=== PATIENT | female | born 1985 | race Two or more races ===

== ENCOUNTER 2016-06-18 14:15 | Emergency (ER) | payer MEDICAID, OTHER ==
[~2016-06-18] VITALS: Ht 160 cm; Wt 93.9 kg
[~2016-06-18 14:15] MED LIST: CIPRO500 MG PO; DIFLUCAN200 MG PO; IBUPROFEN600 MG ORAL; METFORMIN HCL1000 M1 ORAL; ZOFRAN ODT4 MG ORAL
[2016-06-18 14:49] VITALS: BP 95/67
[2016-06-18 14:59] LABS: APPEARANCE,URINE CLEAR; KETONES,URINE 1+ (NEGATIVE); LEUKOCYTE ESTERASE ,URINE NEGATIVE (NEGATIVE); NITRITE,URINE POSITIVE (NEGATIVE); PH,URINE 6 (4.5-8.0); PROTEIN,URINE 1+ (NEGATIVE); UROBILINOGEN,URINE NORMAL MG/DL (0.0-1.0)
[2016-06-18 15:06] LABS: RBC,URINE 0-2 /HPF (0 - 2); WBC,URINE 0-2 /HPF (0 - 2)
--- NOTE | 2016-06-18 15:06 | Emergency Room Report ---
History of Present Illness General Chief Complaint: Abdominal Pain Source: Patient Present Illness HPI 30-year-old male presents emergency department complaining of frequency, now odor and dark colored urine in addition to fevers lower abdominal discomfort and low back pain. Patient reports intermittent uterine cramping states she is on Depo-Provera and her last menstrual period was in March 2016. Patient reports her unprotected intercourse, however states she has had negative at- home test.. patient reports nausea denies vomiting denies constipation or diarrhea. Patient denies myalgias, fatigue or muscle cramps. Denies CP, Palpitations, LOC, AMS, dizziness, Changes in Vision, Sensation, paresthesias, or a sudden severe headache. 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 Allergies: Coded Allergies: No Known Allergies (Unverified , 02/18/12) Patient History Past Medical History: see triage record Past Surgical History: none Pertinent Family History: none Last Menstrual Period: mar 17 depo shot Now: No Immunizations: UTD Reviewed Nursing Documentation: PMH: Agreed, PSxH: Agreed Nursing Documentation-PMH Past Medical History: No History, Except For Hx Diabetes: Yes Review of Systems All Other Systems: negative except mentioned in HPI Physical Exam Vital Signs Date Time Temp Pulse Resp B/P Pulse Ox O2 Delivery O2 Flow Rate FiO2 06/18/16 14:21 98.8 115 20 95/67 98 Room Air Sp02 EP Interpretation: reviewed, abnormal - pt is tachycardic at 115 General Appearance: no apparent distress, alert, GCS 15, non-toxic Head: normocephalic, atraumatic Eyes: bilateral eye PERRL, bilateral eye normal inspection ENT: hearing grossly normal, normal pharynx, no angioedema, normal voice Neck: full range of motion, supple/symm/no masses Respiratory: chest non-tender, lungs clear, normal breath sounds, speaking full sentences Cardiovascular #1: regular rate, rhythm, no edema Gastrointestinal: normal bowel sounds, non tender, soft, no guarding, no rebound Rectal: deferred Genitourinary: normal inspection, no CVA tenderness Musculoskeletal: back normal, gait/station normal, normal range of motion, non- tender, no calf tenderness Neurologic: alert, oriented x3, responsive, motor strength/tone normal, sensory intact, speech normal Psychiatric: judgement/insight normal, memory normal, mood/affect normal, no suicidal/homicidal ideation Skin: normal color, no rash, warm/dry, well hydrated Lymphatic: no adenopathy Medical Decision Making PA Attestation Dr. Alaniz is my supervising Physician whom patient management has been discussed with. Diagnostic Impression: Primary Impression: Urinary tract infection Qualified Codes: N30.01 - Acute cystitis with hematuria Additional Impression: Positive test ER Course Pt. presents to the ED c/o urine malodor, frequency, intermittent uterine cramping and lmp was in march 2016. on Depo. pt states urine is dark in color with strong malodor Ddx considered but are not limited to UTi , Pyelo, STI, Stone, Cystitis, rhabdo , , Vital signs:Pt tachycardic at 115 , pt. is afebrile H&PE are most consistent with UTI ORDERS: - UA labs are attached -Urine Hcg:Positive - Pelvic US: IUP at approximately 13 weeks gestation with hear rate noted. please see Radiology report for full details. ED INTERVENTIONS: None required at this time. DISCHARGE: At this time pt. is stable for d/c to home. Will provide printed patient care instructions, and any necessary prescriptions. Care plan and follow up instructions have been discussed with the patient prior to discharge. Labs Test 06/18/16 14:13 06/18/16 14:30 Urine Color Pale yellow Urine Appearance Clear Urine pH 6 (4.5-8.0) Urine Specific [place] 1.010 (1.005-1.035) Urine Protein 1+ (NEGATIVE) Urine Glucose (UA) 4+ (NEGATIVE) Urine Ketones 1+ (NEGATIVE) Urine Occult Blood Negative (NEGATIVE) Urine Nitrite Positive (NEGATIVE) Urine Bilirubin Negative (NEGATIVE) Urine Urobilinogen Normal MG/DL (0.0-1.0) Urine Leukocyte Esterase Negative (NEGATIVE) Urine RBC 0-2 /HPF (0 - 2) Urine WBC 0-2 /HPF (0 - 2) Urine Squamous Epithelial Cells Few /LPF (NONE/OCC) Urine Bacteria Few /HPF (NONE) Urine HCG, Qualitative Positive Last Vital Signs Date Time Temp Pulse Resp B/P Pulse Ox O2 Delivery O2 Flow Rate FiO2 06/18/16 14:49 98.8 80 20 95/67 98 Room Air Disposition: HOME, SELF-CARE Condition: Stable Scripts Vit #91/Fe Fum/Fa/Dha ( + DHA COMBO PACK) 1 Each Combo..pkg 1 EACH PO DAILY, #1 PACK Prov: Monica Swann 06/18/16 Nitrofurantoin Monohyd/M-Cryst* (MACROBID 100 MG*) 100 Mg Capsule 100 MG ORAL EVERY 12 HOURS for 7 Days, #14 CAP Prov: Monica Swann 06/18/16 Patient Instructions: Urinary Tract Infection Additional Instructions: Take medications as directed. Follow up with PCP in 3-5 days Return sooner to ED if new symptoms occur, or current symptoms become worse. Monica Swann Jun 18, 2016 15:06
[2016-06-18 15:07] LABS: BACTERIA,URINE FEW /HPF; SQUAMOUS EPITHELIAL CELL,UR FEW /LPF (NONE/OCC)
[2016-06-18] MEDS ORDERED: NITROFURANTOIN100 M2 ORAL (15:14)
[2016-06-18] MEDS ORDERED: PRENATAL + DHA1 EAC1 PO (17:43)
[2016-06-18 18:00] VITALS: BP 95/67
--- NOTE | 2016-06-19 10:08 | Diagnostic Imaging Report ---
Indication:Pelvic pain. She was Technique: Grayscale and duplex Doppler imaging of the pelvis performed utilizing a transabdominal scan and endovaginal scan. Comparison: None Findings: Limited OB sonogram was performed demonstrating a single living intrauterine , gestational age estimated at 13 weeks 3 days. heart rate 150 beats per minute. anatomy not assessed on this study. Amniotic fluid appears appropriate for gestational age. The placenta is posterior location and low lying either partially covering the internal cervical loss or very close to the internal cervical os opening. Findings consistent with marginal placenta previa, which could resolve later in . Followup examination is therefore needed closer to term. presentation is variable. Endovaginal scan performed shows closed cervix with measurement of about 4.8 cm in length. measurements are as follows: Biparietal diameter 22.5 mm, 13 weeks 5 days Head circumference 83.2 mm, 13 weeks 4 days Abdominal scar but 68.1 mm, 13 weeks 3 days Femur length 10.5 mm, 13 weeks one day Sikes-rump length 72.6 mm, 13 weeks 3 days. Head circumference abdominal circumference ratio is 1.22. Impression: Single living intrauterine 13 weeks 3 days. anatomy not assessed at this time. Amniotic fluid is within normal limits. Low lying placenta. Recommend repeat ultrasound closer to term. Note: A negative ultrasound evaluation does not insure well-being or positive outcome for the . monitoring including a nonstress test may be needed and clinical evaluation by [employer] is highly recommended.
== END 2016-06-18 18:00 | disposition home or self-care (01) ==
LOC: EMR 16:50
DX: Z33.1 Pregnant state, incidental (principal); O23.11 Infections of bladder in pregnancy, first trimester; N30.01 Acute cystitis with hematuria; E11.9 Type 2 diabetes mellitus without complications
CPT/HCPCS: 76815; 81003; 81025; 99283

== ENCOUNTER 2017-05-03 11:42 | Emergency (ER) | payer OTHER ==
[~2017-05-03] VITALS: Ht 160 cm; Wt 88.5 kg
[~2017-05-03 11:42] MED LIST changes: +NITROFURANTOIN100 M2 ORAL; +PRENATAL + DHA1 EAC1 PO
[2017-05-03] MEDS ORDERED: NKM (11:55)
[2017-05-03 12:26] LABS: APPEARANCE,URINE CLEAR; KETONES,URINE 1+ (NEGATIVE); LEUKOCYTE ESTERASE ,URINE NEGATIVE (NEGATIVE); NITRITE,URINE NEGATIVE (NEGATIVE); PH,URINE 5 (4.5-8.0); PROTEIN,URINE 3+ (NEGATIVE); UROBILINOGEN,URINE NORMAL MG/DL (0.0-1.0)
[2017-05-03 12:35] LABS: BACTERIA,URINE FEW /HPF; RBC,URINE 0-2 /HPF (0 - 2); SQUAMOUS EPITHELIAL CELL,UR FEW /LPF (NONE/OCC); WBC,URINE 0-2 /HPF (0 - 2)
[2017-05-03 12:40] LABS: BASOPHILS % (AUTO) 0.3 % (0.0-2.0); EOSINOPHILS % (AUTO) 0.8 % (0.0-3.0); LYMPHOCYTES % (AUTO) 13.8 % (20.0-45.0); MEAN CORPUSCULAR HEMOGLOBIN 24.4 PG (27.0-31.0); MEAN CORPUSCULAR VOLUME 79 FL (80-99); MEAN PLATELET VOLUME 8.7 FL (6.5-10.1); MONOCYTES % (AUTO) 3.5 % (1.0-10.0); NEUTROPHILS % (AUTO) 81.6 % (45.0-75.0); PLATELET COUNT 272 K/UL (150-450); RED BLOOD COUNT 5.93 M/UL (4.20-5.40); RED CELL DISTRIBUTION WIDTH 12.1 % (11.6-14.8); WHITE BLOOD COUNT 8.8 K/UL (4.8-10.8)
[2017-05-03 12:47] LABS: INR 0.9 (0.9-1.1); PROTHROMBIN TIME 9.6 SEC (9.30-11.50)
[2017-05-03 12:48] LABS: ANION GAP 10 mmol/L (5-15); CALCIUM 8.9 MG/DL (8.5-10.1); CARBON DIOXIDE 27 MMOL/L (21-32); CHLORIDE 100 MMOL/L (98-107); CREATININE 0.7 MG/DL (0.55-1.30); GLOMERULAR FILTRATION RATE > 60 mL/min (>60); SODIUM 137 MMOL/L (136-145)
[2017-05-03 12:53] LABS: ALANINE AMINOTRANSFERASE 20 U/L (12-78); ALBUMIN/GLOBULIN RATIO 0.7 (1.0-2.7); ASPARTATE AMINO TRANSFERASE 12 U/L (15-37); LIPASE 101 U/L (73-393)
[2017-05-03] MEDS ORDERED: ZOFRAN4 M3 ORAL (13:15)
[2017-05-03] MEDS ORDERED: METFORMIN HCL500 M1 ORAL (13:15)
[2017-05-03 13:49] VITALS: BP 114/72
--- NOTE | 2017-05-03 15:14 | Emergency Room Report ---
History of Present Illness General Chief Complaint: Abdominal Pain Source: Patient Present Illness HPI The patient is a 31-year-old female presenting for abdominal pain, nausea, vomiting, and diarrhea since yesterday. She states that the vomiting and diarrhea began before the pain. Pain is a 10 out of 10 dull ache to the mid upper abdomen and does not radiate. Worse with vomiting. She denies any known sick contacts but does admit to recent travel to [place]. She denies other symptoms including fever, chills, shortness of breath, back pain, dysuria, vaginal discharge, rash Allergies: Coded Allergies: No Known Allergies (Unverified , 02/18/12) Patient History Past Medical History: see triage record Pertinent Family History: none Last Menstrual Period: 03/2017 Reviewed Nursing Documentation: PMH: Agreed, PSxH: Agreed Nursing Documentation-PMH Past Medical History: No History, Except For Hx Diabetes: Yes Review of Systems All Other Systems: negative except mentioned in HPI Physical Exam Vital Signs Date Time Temp Pulse Resp B/P (MAP) Pulse Ox O2 Delivery O2 Flow Rate FiO2 05/03/17 11:50 97.7 96 16 103/57 97 Room Air Sp02 EP Interpretation: reviewed, normal General Appearance: no apparent distress, alert, GCS 15, non-toxic Head: normocephalic, atraumatic Eyes: bilateral eye normal inspection, bilateral eye PERRL ENT: hearing grossly normal, normal pharynx, no angioedema, normal voice Neck: full range of motion, supple/symm/no masses Respiratory: chest non-tender, lungs clear, normal breath sounds, speaking full sentences Cardiovascular #1: regular rate, rhythm, no edema Gastrointestinal: normal bowel sounds, soft, no mass, no guarding, tenderness - epigastric Rectal: deferred Musculoskeletal: back normal, gait/station normal, normal range of motion, non- tender Neurologic: alert, oriented x3, responsive, motor strength/tone normal, sensory intact, speech normal Psychiatric: judgement/insight normal, memory normal, mood/affect normal, no suicidal/homicidal ideation Skin: normal color, no rash, warm/dry, well hydrated Lymphatic: no adenopathy Medical Decision Making PA Attestation Dr. Cavanaugh is my supervising physician. Patient management was discussed with my supervising physician Diagnostic Impression: Primary Impression: Diabetes mellitus Qualified Codes: E11.8 - Type 2 diabetes mellitus with unspecified complications Additional Impression: Gastroenteritis ER Course The patient is a 31-year-old female presenting for abdominal pain, nausea, vomiting, and diarrhea since yesterday Differential diagnoses considered but not limited to: Gastroenteritis, GERD, gastritis, appendicitis, pancreatitis PE: Vitals WNL. NAD. Abdomen: Normal appearance. Non distended. No ecchymosis. Increased BS. + Epigastric TTP. No McBurney point tenderness. No guarding. No CVA tenderness Labs: CBC unremarkable. No leukocytosis CMP shows hyperglycemia at 299 Urinalysis unremarkable The patient states that she has a known history of diabetes but has not taken any medications She was given IV fluids and Zofran and states that she is feeling significantly better. She is discharged home with a prescription for metformin and Zofran. ER precautions are given Laboratory Tests Test 05/03/17 12:08 05/03/17 12:30 Urine Color Pale yellow Urine Appearance Clear Urine pH 5 (4.5-8.0) Urine Specific [place] 1.020 (1.005-1.035) Urine Protein 3+ (NEGATIVE) H Urine Glucose (UA) 4+ (NEGATIVE) H Urine Ketones 1+ (NEGATIVE) H Urine Occult Blood 1+ (NEGATIVE) H Urine Nitrite Negative (NEGATIVE) Urine Bilirubin Negative (NEGATIVE) Urine Urobilinogen Normal MG/DL (0.0-1.0) Urine Leukocyte Esterase Negative (NEGATIVE) Urine RBC 0-2 /HPF (0 - 2) Urine WBC 0-2 /HPF (0 - 2) Urine Squamous Epithelial Cells Few /LPF (NONE/OCC) Urine Bacteria Few /HPF (NONE) Urine HCG, Qualitative Negative White Blood Count 8.8 K/UL (4.8-10.8) Red Blood Count 5.93 M/UL (4.20-5.40) H Hemoglobin 14.5 G/DL (12.0-16.0) Hematocrit 46.7 % (37.0-47.0) Mean Corpuscular Volume 79 FL (80-99) L Mean Corpuscular Hemoglobin 24.4 PG (27.0-31.0) L Mean Corpuscular Hemoglobin Concent 31.0 G/DL (32.0-36.0) L Red Cell Distribution Width 12.1 % (11.6-14.8) Platelet Count 272 K/UL (150-450) Mean Platelet Volume 8.7 FL (6.5-10.1) Neutrophils (%) (Auto) 81.6 % (45.0-75.0) H Lymphocytes (%) (Auto) 13.8 % (20.0-45.0) L Monocytes (%) (Auto) 3.5 % (1.0-10.0) Eosinophils (%) (Auto) 0.8 % (0.0-3.0) Basophils (%) (Auto) 0.3 % (0.0-2.0) Prothrombin Time 9.6 SEC (9.30-11.50) Prothrombin Time INR 0.9 (0.9-1.1) PTT 25 SEC (23-33) Sodium Level 137 MMOL/L (136-145) Potassium Level 4.0 MMOL/L (3.5-5.1) Chloride Level 100 MMOL/L (98-107) Carbon Dioxide Level 27 MMOL/L (21-32) Anion Gap 10 mmol/L (5-15) Blood Urea Nitrogen 12 mg/dL (7-18) Creatinine 0.7 MG/DL (0.55-1.30) Estimate Glomerular Filtration Rate > 60 mL/min (>60) Glucose Level 299 MG/DL (74-106) H Calcium Level 8.9 MG/DL (8.5-10.1) Total Bilirubin 0.2 MG/DL (0.2-1.0) Aspartate Amino Transferase (AST) 12 U/L (15-37) L Alanine Aminotransferase (ALT) 20 U/L (12-78) Alkaline Phosphatase 121 U/L (46-116) H Total Protein 8.0 G/DL (6.4-8.2) Albumin 3.3 G/DL (3.4-5.0) L Globulin 4.7 g/dL Albumin/Globulin Ratio 0.7 (1.0-2.7) L Lipase 101 U/L (73-393) Lab Results Impression CBC unremarkable. No leukocytosis CMP shows hyperglycemia at 299 Urinalysis unremarkable Last Vital Signs Date Time Temp Pulse Resp B/P (MAP) Pulse Ox O2 Delivery O2 Flow Rate FiO2 05/03/17 13:49 98.4 93 18 114/72 100 Room Air Status: improved Disposition: HOME, SELF-CARE Condition: Improved Scripts Metformin Hcl* (METFORMIN HCL*) 500 Mg Tablet 500 MG ORAL TWICE A DAY, #60 TAB Prov: FELZI RODAS 05/03/17 Ondansetron* (ZOFRAN*) 4 Mg Tablet 4 MG ORAL Q6H Y for Nausea & Vomiting, #15 TAB Prov: EFLIZ RODAS 05/03/17 Patient Instructions: Hyperglycemia, [id number], Abdominal Pain, Adult Additional Instructions: I discussed my findings with the patient. All questions and concerns have been answered. Treatment and medication compliance have been addressed. I advised the patient that they need to follow up with PMD in 3-5 days. Return to ED if symptoms worsen, new symptoms arise, or if needed for any reason. Patient verbalized understanding of discharge instructions. FELIZ RODAS May 03, 2017 15:14
== END 2017-05-03 13:52 | disposition home or self-care (01) ==
LOC: EMR 12:25
DX: E11.9 Type 2 diabetes mellitus without complications (principal); K52.9 Noninfective gastroenteritis and colitis, unspecified
CPT/HCPCS: 36415; 80053; 81003; 81025; 83690; 85025; 85610; 85730; 96361; 96374; 99284; J2405

== ENCOUNTER 2019-05-10 07:25 | Emergency (ER) | payer MEDICAID, OTHER ==
[~2019-05-10] VITALS: Ht 160 cm; Wt 90.7 kg
[~2019-05-10 07:25] MED LIST changes: +METFORMIN HCL500 M1 ORAL; +NKM; +ZOFRAN4 M3 ORAL
[2019-05-10] MEDS ORDERED: NKM (07:32)
--- NOTE | 2019-05-10 07:36 | NUR ---
ED Nurse Note: Patient walked in ED from home c/o burning sensation and pain when urinating x 1 week, chills, generalized body pain 6/10, but denies n/v/d at this time. Patient states she is diabetic but has stopped Metformin, patient states she gets diarrhea everytime she takes it. Blood glucose 306. ERMD at bedside, aware. Oral temperature 97.9 in triage.
[2019-05-10 07:42] VITALS: BP 103/72
--- NOTE | 2019-05-10 07:42 | Emergency Room Report ---
History of Present Illness General Chief Complaint: Female Urogenital Problems Source: Patient Present Illness HPI The patient presents with dysuria for 1 week. She also had fevers this morning. It is mainly pressure in her bladder and also dysuria. She has had some frequency also. There is no hematuria. Her last menstruation was April 21 and normal for her. The patient is a diabetic but is not taking medication at this time. She states metformin causes diarrhea and her doctors took her off of the medication. She denies previous urinary tract infections but review of records reveals that she has had urinary tract infections associated with and also otherwise. No sore throat, chest pain, palpitations, nausea, vomiting, diarrhea, shortness of breath, joint pain, rashes, depression, anxiety, visual changes, dizziness, headache. 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13 Last Menstrual Period: 04/21/19 Now: No Reviewed Nursing Documentation: PMH: Agreed; PSxH: Agreed Nursing Documentation-PMH Past Medical History: No History, Except For Hx Cardiac Problems: No Hx Diabetes: Yes - DM II Review of Systems All Other Systems: negative except mentioned in HPI Physical Exam Vital Signs Date Time Temp Pulse Resp B/P (MAP) Pulse Ox O2 Delivery O2 Flow Rate FiO2 05/10/19 07:27 97.9 90 17 103/72 (82) 97 Room Air Sp02 EP Interpretation: reviewed, normal General Appearance: well appearing, no apparent distress, GCS 15, non-toxic Head: normocephalic Eyes: bilateral eye normal inspection, bilateral eye PERRL, bilateral eye EOMI ENT: moist mucus membranes Neck: full range of motion, supple Respiratory: chest non-tender, lungs clear Cardiovascular #1: regular rate, rhythm Gastrointestinal: normal inspection, normal bowel sounds Genitourinary: no CVA tenderness Musculoskeletal: gait/station normal Neurologic: alert, oriented x3, grossly normal Psychiatric: mood/affect normal Skin: normal color, no rash, other - Slightly plethoric Medical Decision Making Diagnostic Impression: Primary Impression: Urinary tract infection Qualified Codes: N39.0 - Urinary tract infection, site not specified Additional Impression: Diabetes mellitus Qualified Codes: E11.9 - Type 2 diabetes mellitus without complications ER Course Patient presents with dysuria and fever. She denies any back pain. Differential includes urinary tract infection, polynephritis amongst others. Urinalysis and test is indicated. In addition an Accu-Chek is obtained. Her blood sugar is 306 and she needs to be started on diabetic medication. She has a bad reaction to metformin another agent will be chosen. Because of diabetes and fevers labs will be checked. Labs significant for normal white count. CMP with elevated glucose without acidosis. Urinalysis with too numerous to count white cells. Rocephin given IV. Glipizide given orally. Discussed findings with patient. Discussed treatment plan. As the patient was febrile and diabetic consideration for the possibility of pyelonephritis. Patient improved with treatment. Patient stable for outpatient observation and treatment. Laboratory Tests Test 05/10/19 07:45 05/10/19 08:00 Urine Color Brown Urine Appearance Cloudy Urine pH 6 (4.5-8.0) Urine Specific [place] 1.020 (1.005-1.035) Urine Protein 2+ (NEGATIVE) H Urine Glucose (UA) 4+ (NEGATIVE) H Urine Ketones Negative (NEGATIVE) Urine Blood 2+ (NEGATIVE) H Urine Nitrite Negative (NEGATIVE) Urine Bilirubin Negative (NEGATIVE) Urine Urobilinogen Normal MG/DL (0.0-1.0) Urine Leukocyte Esterase 3+ (NEGATIVE) H Urine RBC 2-4 /HPF (0 - 2) H Urine WBC Tntc /HPF (0 - 2) H Urine Squamous Epithelial Cells None /LPF (NONE/OCC) Urine Bacteria Few /HPF (NONE) Urine HCG, Qualitative Negative (NEGATIVE) White Blood Count 10.2 K/UL (4.8-10.8) Red Blood Count 5.49 M/UL (4.20-5.40) H Hemoglobin 13.4 G/DL (12.0-16.0) Hematocrit 42.0 % (37.0-47.0) Mean Corpuscular Volume 77 FL (80-99) L Mean Corpuscular Hemoglobin 24.5 PG (27.0-31.0) L Mean Corpuscular Hemoglobin Concent 32.0 G/DL (32.0-36.0) Red Cell Distribution Width 13.0 % (11.6-14.8) Platelet Count 329 K/UL (150-450) Mean Platelet Volume 7.0 FL (6.5-10.1) Neutrophils (%) (Auto) 61.4 % (45.0-75.0) Lymphocytes (%) (Auto) 29.9 % (20.0-45.0) Monocytes (%) (Auto) 5.7 % (1.0-10.0) Eosinophils (%) (Auto) 1.8 % (0.0-3.0) Basophils (%) (Auto) 1.1 % (0.0-2.0) Sodium Level 134 MMOL/L (136-145) L Potassium Level 4.0 MMOL/L (3.5-5.1) Chloride Level 99 MMOL/L (98-107) Carbon Dioxide Level 28 MMOL/L (21-32) Anion Gap 7 mmol/L (5-15) Blood Urea Nitrogen 12 mg/dL (7-18) Creatinine 0.7 MG/DL (0.55-1.30) Estimate Glomerular Filtration Rate > 60 mL/min (>60) Glucose Level 305 MG/DL (74-106) H Calcium Level 9.0 MG/DL (8.5-10.1) Total Bilirubin 0.2 MG/DL (0.2-1.0) Aspartate Amino Transferase (AST) 16 U/L (15-37) Alanine Aminotransferase (ALT) 35 U/L (12-78) Alkaline Phosphatase 139 U/L (46-116) H Total Protein 8.1 G/DL (6.4-8.2) Albumin 3.5 G/DL (3.4-5.0) Globulin 4.6 g/dL Albumin/Globulin Ratio 0.8 (1.0-2.7) L Last Vital Signs Date Time Temp Pulse Resp B/P (MAP) Pulse Ox O2 Delivery O2 Flow Rate FiO2 05/10/19 10:26 98.0 88 18 105/70 98 Room Air Status: improved Disposition: HOME, SELF-CARE Condition: Improved Scripts Ibuprofen* (MOTRIN*) 600 Mg Tablet 600 MG ORAL Q6H PRN for For Pain, #20 TAB 0 Refills Prov: Paolo Esteban MD 05/10/19 Lancing Device/Lancets (ACCU-CHEK MULTICLIX LANCET KIT) 1 Each Kit EACH MC NEEDED, #30 2 Refills Prov: Paolo Esteban MD 05/10/19 Blood-Glucose Meter (Accu-Chek Guide Me Glucose Mtr) 1 Each Each EACH NEEDED, #1 Prov: Paolo Esteban MD 05/10/19 Cephalexin* (KEFLEX*) 500 Mg Capsule 500 MG ORAL EVERY 6 HOURS, #40 CAP Prov: Paolo Esteban MD 05/10/19 Glipizide* (GLUCOTROL XL*) 5 Mg Tab.er.24 5 MG ORAL ACBREAKFAST, #20 TAB 0 Refills Prov: Paolo Esteban MD 05/10/19 Paolo Esteban MD May 10, 2019 07:42
--- NOTE | 2019-05-10 07:47 | NUR ---
ED Nurse Note: Urine collected and sent down to lab.
[2019-05-10 08:00] LABS: APPEARANCE,URINE CLOUDY; BILIRUBIN, URINE NEGATIVE (NEGATIVE); COLOR,URINE BROWN; GLUCOSE, URINE (UA) 4+ (NEGATIVE); KETONES,URINE NEGATIVE (NEGATIVE); LEUKOCYTE ESTERASE ,URINE 3+ (NEGATIVE); NITRITE,URINE NEGATIVE (NEGATIVE); PH,URINE 6 (4.5-8.0); PROTEIN,URINE 2+ (NEGATIVE); UROBILINOGEN,URINE NORMAL MG/DL (0.0-1.0)
--- NOTE | 2019-05-10 08:01 | NUR ---
ED Nurse Note: IV access established, patient tolerated well. Blood collected and sent down to lab.
[2019-05-10 08:26] LABS: BASOPHILS % (AUTO) 1.1 % (0.0-2.0); EOSINOPHILS % (AUTO) 1.8 % (0.0-3.0); HEMOGLOBIN 13.4 G/DL (12.0-16.0); LYMPHOCYTES % (AUTO) 29.9 % (20.0-45.0); MEAN CORPUSCULAR VOLUME 77 FL (80-99); MONOCYTES % (AUTO) 5.7 % (1.0-10.0); NEUTROPHILS % (AUTO) 61.4 % (45.0-75.0); PLATELET COUNT 329 K/UL (150-450); RED BLOOD COUNT 5.49 M/UL (4.20-5.40); WHITE BLOOD COUNT 10.2 K/UL (4.8-10.8)
[2019-05-10 08:33] LABS: ANION GAP 7 mmol/L (5-15); BLOOD UREA NITROGEN 12 mg/dL (7-18); CARBON DIOXIDE 28 MMOL/L (21-32); CHLORIDE 99 MMOL/L (98-107); CREATININE 0.7 MG/DL (0.55-1.30); SODIUM 134 MMOL/L (136-145)
[2019-05-10 08:38] LABS: ALANINE AMINOTRANSFERASE 35 U/L (12-78); ALBUMIN 3.5 G/DL (3.4-5.0); ALBUMIN/GLOBULIN RATIO 0.8 (1.0-2.7); ALKALINE PHOSPHATASE 139 U/L (46-116); ASPARTATE AMINO TRANSFERASE 16 U/L (15-37); BILIRUBIN,TOTAL 0.2 MG/DL (0.2-1.0)
[2019-05-10] MEDS ORDERED: cefTRIAXone 1 GM in NS 55 ML IVPB ONE (08:45)
--- NOTE | 2019-05-10 09:07 | NUR ---
ED Nurse Note: IV antibiotics started. Will continue to monitor.
[2019-05-10] MEDS ORDERED: GlipiZIDE 5mg tab ORAL STA (09:13)
[2019-05-10] MEDS ORDERED: CEPHALEXIN500 MG ORAL ×3 (09:22→10:12)
[2019-05-10] MEDS ORDERED: GLUCOTROL XL5 MG ORAL (09:22)
--- NOTE | 2019-05-10 09:42 | NUR ---
ED Nurse Note: IV antibiotics completed; no adverse reaction noted. Will continue to monitor.
[2019-05-10] MEDS ORDERED: ACCU-CHEK MULT1 EACH MC (10:15)
[2019-05-10] MEDS ORDERED: ACCU-CHEK GUID1 EAC3 MC (10:15)
[2019-05-10] MEDS ORDERED: IBUPROFEN600 MG ORAL (10:19)
--- NOTE | 2019-05-10 10:24 | NUR ---
ER DISCHARGE NOTE: Patient is cleared to be discharged per ERMD, pt is aox4, on room air, with stable vital signs. pt was given dc and prescription instructions, pt was able to verbalize understanding, pt id band and iv site removed without complications. pt is able to ambulate with steady gait. pt took all belongings.
[2019-05-10 10:26] VITALS: BP 105/70
== END 2019-05-10 10:24 | disposition home or self-care (01) ==
LOC: EMR 08:05
DX: N39.0 Urinary tract infection, site not specified (principal); E11.9 Type 2 diabetes mellitus without complications; R50.9 Fever, unspecified; Z79.84 Long term (current) use of oral hypoglycemic drugs
CPT/HCPCS: 36415; 80053; 81003; 81025; 82962; 85025; 87086; 87181; 96365; J0696; Z7502; 99284